=== PATIENT | female | born 1995 | race Caucasian/White ===

== ENCOUNTER → 2020-07-18 10:54 | Outpatient (CLI) | payer OTHER, SELFPAY ==
--- NOTE | 2020-07-18 | DI.MRI.S_ITS ---
PROCEDURE: MR KNEE RT WO CON INDICATIONS: Pain in right knee TECHNIQUE: Noncontrast sagittal PD fast spin echo and T2 fast spin echo with fat saturation, sagittal 3-D FLASH with fat saturation; coronal T1 spin echo and PD fast spin echo with fat saturation, and axial PD fast spin echo with fat saturation through the knee. COMPARISON: [facility], MR, MR KNEE RIGHT WITHOUT CONTRAST, 11/20/2018, 7:35. [facility] [place], CR, XR KNEE 4+ VIEWS RIGHT, 07/07/2020, 11:28. FINDINGS: Image quality: Excellent. Menisci: The medial and lateral menisci demonstrate normal morphology and internal signal. The meniscal root ligaments appear intact. Cruciate ligaments: Chronic full-thickness anterior cruciate ligament tear is present, as before. Posterior cruciate ligament is intact. Medial structures: The medial collateral ligament appears intact. Visualized portions of the pes anserinus tendons appear normal. No abnormal bursal fluid. Lateral structures: The lateral collateral ligament, long and short heads of the biceps femoris tendon appear intact. The popliteus tendon appears normal. Iliotibial band appears normal. Anterior structures: The quadriceps and patellar tendons appear intact. Patellar alignment is normal. No femoral trochlear dysplasia or ventral trochlear prominence. No edema in the infrapatellar fat pad. Bones and cartilage: No bone marrow contusions or fractures. The cartilage of the medial and lateral femorotibial compartments, as well as the patellofemoral compartment, appears normal in thickness. Joint space: There is physiologic knee joint fluid. No Mejia's cyst. Normal appearing synovial plicae are incidentally noted. IMPRESSION: 1. No change in chronic full-thickness anterior cruciate ligament tear. 2. Otherwise negative examination. Dictated by: Vernon Lucero M.D. on 07/19/2020 at 9:39 Approved by: Vernon Lucero M.D. on 07/19/2020 at 9:41
== END ==
PROVIDERS: Referring Provider Orthopaedic Surgery; Visit Provider Orthopaedic Surgery
DX: M25.561 Pain in right knee (principal); S83.511A Sprain of anterior cruciate ligament of right knee, initial encounter
CPT/HCPCS: 73721

== ENCOUNTER → 2020-08-14 09:01 | Outpatient (CLI) | payer OTHER, SELFPAY ==
[2020-08-14 11:14] LABS: COVID19 -Nasal RAPID Negative (Negative)
== END ==
PROVIDERS: Referring Provider Physician Assistant; Visit Provider Physician Assistant
DX: Z01.812 Encounter for preprocedural laboratory examination (principal); Z20.822 Contact with and (suspected) exposure to COVID-19
CPT/HCPCS: 87635

== ENCOUNTER 2020-08-16 13:24 | Day surgery (SDC) | payer OTHER, SELFPAY ==
[2020-08-13 09:51] VITALS: BMI 21.8
[2020-08-16] VITALS (9 sets, daily range): BP systolic 107–134; BP diastolic 63–81; PULSE 81–113; RESP 12–16; TEMP 36.7–37.1; O2SAT 95–100; BMI 22.1
[2020-08-16] MEDS: LACTATED RINGERS 1,000 ML 100 ML IV (13:59)
--- NOTE | 2020-08-16 15:00 | PM.PREOP ---
Pre-operative Note COVID-19 COVID-19 status: Negative Result date/Date tested (Pos, Neg/Pending): 08/14/20 Interval Note History & Physical reviewed/Exam performed by Physician: Yes Changes to H&P: No
[2020-08-16] MEDS: CEFAZOLIN 1 GM VIAL IV (15:55)
--- NOTE | 2020-08-16 16:06 | SUR.OPER ---
Supine on padded OR bed, head on pillow, arms secured on padded arm boards at <90 degrees abduction, legs uncrossed, safety belt at waist. RIght leg with lateral stress post under control of surgeon.
[2020-08-16] MEDS: BUPIVACAINE 0.5% (PF) VIAL 30 ML INJ (16:33)
--- NOTE | 2020-08-16 17:37 | PM.OP.1 ---
Operative Date/Time/Diagnoses Date of procedure: 08/16/20 Time of procedure: 17:37 Pre-op diagnosis: Right knee ACL rupture Post-op diagnosis: same Procedure & Clinicians Procedure: Right knee ACL reconstruction with quadriceps autograft Same procedure as scheduled: Yes Indications: The patient is a 24-year-old woman who has symptoms of instability in her right knee and an MRI confirming an ACL rupture. She has agreed to ACL reconstruction after discussion the risks benefits and alternatives. Risks discussed included but were not limited to: Failure to improve, stiffness, infection, nerve damage, deep venous thrombosis, pulmonary embolism, stroke, myocardial infarction, permanent paralysis and . Surgeon: Jesse Weiss Sr. Media Manager: Bi Wilkes Click Yes if Unassisted: No Anesthesia Type: General, Peripheral nerve block and Local Operative Notes Findings: 1. Normal suprapatellar pouch 2. Normal patellofemoral joint 3. Normal medial and lateral gutters 4. Normal medial compartment 5. Intercondylar notch notable for complete rupture of ACL with intact PCL. 6. Normal lateral compartment 7. Normal posterolateral compartment 8. Normal posterior medial compartment Closure Type: primary Specimen(s): none sent Prosthetic devices, grafts, tissues, transplants, or devices: An Arthrex Tight Rope system was used for both the femoral and tibial fixation. A small oblong titanium button was used on the femoral side and a round 14 mm titanium button was used on the tibial side. Applied: implant(s) Estimated Blood Loss (mL): 25 Blood products transfused: none Tourniquet time (min): 53 Procedure in detail: The patient was seen in the preoperative area where she identified her right knee as the operative site and this was marked with my initials. She underwent a femoral nerve block and was taken to the operating room placed on the operating room table in a supine position. She received preoperative antibiotics. She underwent the induction of general anesthetic. A tourniquet was placed about her proximal right thigh. The leg was examined under anesthesia with findings of a grade 3 pivot shift and a grade 3 Chance's maneuver. A marketing finance manager-out was performed. The leg was prepared with ChloraPrep in the usual fashion draped through sterile drapes. The arthroscopic pump cannula was placed through a superior medial portal and a lateral portal was created for the arthroscope and the knee was diagnostically arthroscoped in the standard order with result given above. Medial portal was created for the probe and other tools. After confirming the ACL was ruptured and confirming there was no significant meniscal injury the arthroscopic equipment was temporarily removed. The leg was elevated and exsanguinated with an Esmarch bandage and the tourniquet inflated to 250 mmHg. An approximately 7 cm incision was created overlying the distal quadriceps. The central 10 mm of quadriceps tendon was harvested taking 7 cm of tendon. This was taken to the back table for preparation into a graft by my assistant import manager. A shaver was placed in the knee and used to debride scar tissue from the intercondylar notch. A ?flip cutter? retrograde Reamer was used to place a 10 mm socket in the center of the femoral footprint of the ACL. A passing suture was placed. A 10 mm tunnel was then drilled in the center of the tibial portion of the ACL. The passing suture was pulled through and used to deliver the graft through the femoral tunnel. The femoral button was deployed and tension placed on the graft to confirm the button had captured. The ?tight rope? system was then used to pull the graft into the socket. On the tibial side the tight rope sutures were placed through the 14 mm round button and the button was delivered over the aperture of the tunnel. Both the tight rope systems were cycled multiple times to ensure satisfactory tension on the graft. They were then both tied over their respective knots to prevent slippage. The knee was checked for stability and the Chance had been reduced to a grade 0. The tourniquet was deflated for total tourniquet time of 53 minutes. The graft harvest and tibial tunnel wound were closed with and subcutaneous 3-0 Vicryl and then running 4-0 Monocryl. The portals were closed with 4-0 Monocryl as well. Steri-Strips were applied. Knee was injected with 10 mL of 0.5% plain Marcaine for postoperative pain control. Dressings of sterile 4x4s, cast padding and an Morgan wrap were applied and the patient was transferred to the recovery room in good condition having tolerated the procedure well. Complications: none Post-operative Condition: stable Disposition: PACU Plan for aftercare: The patient will be maintained on a standard ACL reconstruction protocol. She has been informed she should remain on crutches until her femoral nerve block has worn off. She may then begin to weightbear as her pain level allows. She will be discharged today.
[2020-08-16] MEDS: KETOROLAC 30 MG/ML VIAL IV (17:56)
[2020-08-16] MEDS: ONDANSETRON 4 MG/2 ML INJ IV (18:20)
[2020-08-16] MEDS: ACETAMINOPHEN 325 MG TABLET 975 MG PO (18:24)
[2020-08-16] MEDS: hydrOXYzine pamoate 25 MG CAPSULE PO (18:30)
== END 2020-08-16 19:06 | disposition home or self-care (01) ==
PROVIDERS: PCP Family Medicine; Referring Provider Family Medicine; Visit Provider Orthopaedic Surgery
PROC: (CPT 29888; principal; 2020-08-16 14:45)
DX: S83.511A Sprain of anterior cruciate ligament of right knee, initial encounter (principal); Y93.68 Activity, volleyball (beach) (court)
CPT/HCPCS: 29888; J0690; J1100; J1885; J2250; J2405; J2704; J3010

== ENCOUNTER → 2020-09-14 12:06 | Outpatient (CLI) | payer OTHER, SELFPAY ==
--- NOTE | 2020-09-14 | DI.US.S_ITS ---
PROCEDURE: US PERIPH VENOUS LOW EXTREM RT INDICATIONS: EDEMA TECHNIQUE: Real-time imaging, as well as color and pulse Doppler interrogation, were performed of the lower extremity deep veins from the inguinal ligament to the popliteal fossa. COMPARISON: None. FINDINGS: The common femoral, femoral and popliteal veins are normally compressible, and free of intraluminal thrombus. Color and pulse Doppler demonstrate normal phasic intraluminal flow. There is normal augmentation response to distal compression maneuver. IMPRESSION: No DVT in the right lower extremity. Dictated by: Kandi Nugent M.D. on 09/14/2020 at 13:49 Approved by: Kandi Nugent M.D. on 09/14/2020 at 13:49
== END ==
PROVIDERS: PCP Family Medicine; Referring Provider Orthopaedic Surgery; Visit Provider Orthopaedic Surgery
DX: R60.0 Localized edema (principal)
CPT/HCPCS: 93971